=== PATIENT | male | born 1960 | race Caucasian/White ===

== ENCOUNTER 2022-11-29 01:06 | Day surgery (SDC) | payer BC, SELFPAY ==
[2022-11-18 08:38] VITALS: BMI 25.8
--- NOTE | 2022-11-28 13:20 | PM.HPGS ---
History of Present Illness History of Present Illness Consent: Risks, benefits, and alternatives have been discussed and questions answered. Patient agrees to proceed with procedure. Chief complaint: neoplasm screening Narrative: Orlando Salazar is a 61 year old male who was referred for colon cancer screening. Review of Systems Review of Systems: All systems reviewed & are unremarkable except as noted in HPI and below PMFSH Social History Social History Smoking status: Never smoker Alcohol intake: current Drinks per week: 9 Substance use type: does not use Living arrangements: with family Spiritual care concerns: No Meds Home Medications and Allergies Home Medications Medication Instructions Recorded Confirmed Type No Home Medications 11/18/22 11/29/22 History Allergies Allergy/AdvReac Type Severity Reaction Status Date / Time No Known Allergies Allergy Verified 11/29/22 06:18 Exam Const: General: alert Orientation/consciousness: patient oriented x3 Resp: Auscultation: clear to auscultation bilaterally Cardio: Rhythm: regular rhythm GI: GI Palp: Yes Soft to palpation and No Tenderness to palpation present (GI) Neuro: General: patient oriented x3 Assessment and Plan Assessment and plan (1) Colon cancer screening: Code(s): Z12.11 - Encounter for screening for malignant neoplasm of colon Status: Acute Assessment and Plan: Colonoscopy with possible biopsy or polypectomy or cautery or injection of substances.
--- NOTE | 2022-11-28 14:18 | P.PNAN_ITS ---
Anes - Initial Pre Proc Eval Procedure: Operation Date: 11/29/22 07:30 Proposed Procedures p Screening Colonoscopy - Rohan Goetz MD Date/Time: 11/28/22 14:18 Surgeon: Rohan Goetz MD Pre Op Diagnosis: neoplasm screening Patient Data Age: 61 Gender: M Height: 1.83 m Weight: 86.5 kg Allergies Allergy/AdvReac Type Severity Reaction Status Date / Time No Known Allergies Allergy Verified 11/29/22 06:18 Home Medications Medication Instructions Recorded Confirmed Type No Home Medications 11/18/22 11/29/22 History Patient hx anesthesia problems: none Family hx anesthesia problems: none Results Review: All pre-operative results and documents have been reviewed as part of the pre- operative evaluation. [facility] Social History Social History Smoking status: Never smoker Alcohol intake: current Drinks per week: 9 Substance use type: does not use Living arrangements: with family Spiritual care concerns: No Anes - Eval Final PreProcedure Day of Procedure 11/28/22 14:18 Patient weight: normal Heart: regular rate and rhythm Lungs: clear to auscultation Airway: Mallampati scale class II Neurological: alert and oriented Last oral intake: >/= 8 hours ASA classification: II Emergent: no Anesthetic plan: proceed Anesthesia type and monitoring: general GIVS and standard monitoring Results Review: All pre-operative results and documents have been reviewed as part of the pre- operative evaluation. Informed Consent: The patient's anesthetic plan and its attendant risks and benefits were discussed with the patient/family/POA. Questions were solicited and answers provided to the satisfaction of the patient/family/POA.
[2022-11-29 06:18] VITALS: BP 112/72; PULSE 78; RESP 18; TEMP 36.3; O2SAT 100
[2022-11-29] MEDS: LACTATED RINGERS 1,000 ML 150 ML IV CONT (06:26)
[2022-11-29 07:42] VITALS: BP 97/67; PULSE 71; RESP 16; O2SAT 95
[2022-11-29 07:52] VITALS: BP 105/74; PULSE 74; RESP 17; O2SAT 95
[2022-11-29 08:02] VITALS: BP 105/75; PULSE 72; RESP 19; O2SAT 100
== END 2022-11-29 08:09 | disposition home or self-care (01) ==
PROVIDERS: PCP Student in an Organized Health Care Education/Training Program; Visit Provider Internal Medicine Gastroenterology
PROC: 0DJD8ZZ Inspection of Lower Intestinal Tract, Via Natural or Artificial Opening Endoscopic (ICD-10-PCS; CPT 45378; principal; 2022-11-29 07:30)
DX: Z12.11 Encounter for screening for malignant neoplasm of colon (principal); K64.4 Residual hemorrhoidal skin tags; K64.8 Other hemorrhoids
CPT/HCPCS: 45378; J2704; J7120

== ENCOUNTER 2025-07-17 07:51 | Emergency (ER) | payer BC, SELFPAY ==
[2025-07-17 07:55] VITALS: BP 126/74; PULSE 76; RESP 20; TEMP 36.7; O2SAT 100
--- NOTE | 2025-07-17 08:10 | ED.GENADULT ---
HPI - General Adult General Chief complaint: Skin/Abscess/Foreign Body Stated complaint: skin around eye rash Time Seen by Provider: 07/17/25 07:53 History of Present Illness HPI narrative: 64-year-old male present to the emergency department for evaluation for worsening chronic rash. Patient was diagnosed with pemphigus foliaceus. patient has had follow-up with dermatology. Patient does have follow-up with a specialist infant childcare provider tomorrow. Patient is currently on topical triamcinolone, niacin, doxycycline. Patient began noticing worsening rash around his eyes over the last few days. Patient states that he does have extensive rash over his chest and back and does not feel this has been improving in response to the medications. Patient states he has been using some natural tears eyedrops. Related Data Home Medications ?Medication ?Instructions ?Recorded ?Confirmed ?Last Taken ?Type No Home Medications 11/18/22 11/29/22 Unknown History Allergies Allergy/AdvReac Type Severity Reaction Status Date / Time No Known Allergies Allergy Verified 11/29/22 06:18 Review of Systems Review of Systems: All systems reviewed & are unremarkable except as noted in HPI and below PMFSH Social History Social History Smoking status: Never smoker Alcohol intake: current Drinks per week: 9 Substance use type: does not use Living arrangements: with family Spiritual care concerns: No Exam Narrative: APPEARANCE: Well appearing, no pain, no distress, well-nourished. HEAD: normocephalic, atraumatic. EYES: PERRLA/EOMI, conjunctivae clear. NOSE: Normal no drainage EARS:TMS clear with good light reflex. THROAT: Pharynx clear, no exudate. NECK: Supple. No adenopathy, no masses. RESPIRATORY: Airway patent, respirations nonlabored. Clear to auscultation bilaterally, no rales, rhonchi, wheezing. CARDIOVASCULAR: Regular rate and rhythm without murmurs rubs or gallops. ABDOMINAL: Soft, nontender, nondistended, normal bowel sounds MUSCULOSKELETAL: Moves all extremities. Strength/ROM intact, No edema, No calf tenderness. NEURO: Alert. Cranial nerves II through XII intact. grossly intact SKIN: Eczema like rash under left eye and some puffiness under the right Course Vital Signs Vital signs: Vital Signs Temperature 98.0 F 07/17/25 07:55 Pulse Rate 76 07/17/25 07:55 Respiratory Rate 20 07/17/25 07:55 Blood Pressure 126/74 07/17/25 07:55 Pulse Oximetry 100 07/17/25 07:55 Oxygen Delivery Room Air 07/17/25 07:55 Temperature 98.0 F 07/17/25 07:55 Pulse Rate 76 07/17/25 07:55 Respiratory Rate 20 07/17/25 07:55 Blood Pressure 126/74 07/17/25 07:55 Pulse Oximetry 100 07/17/25 07:55 Oxygen Delivery Room Air 07/17/25 07:55 Medical Decision Making MDM Narrative Medical decision making narrative: 64-year-old male presenting to the emergency department for evaluation for rash developing on the eyes. Patient was advised not to use the triamcinolone cream on his face but was advised he is some topical cortisone as long as he was careful not to get it in his eyes. Patient was also advised to hold off on the natural tears to see if he is having a reaction to the eyedrops. Patient does have follow-up tomorrow with the infant childcare provider specialist. Patient family are comfortable the plan for discharge and close follow-up. Differential Diagnosis Differential Diagnosis: Cellulitis, periorbital cellulitis, except tremor tightest, eczema, pemphigus Vital Signs Vital Signs: Vital Signs Temperature 98.0 F 07/17/25 07:55 Pulse Rate 76 07/17/25 07:55 Respiratory Rate 20 07/17/25 07:55 Blood Pressure 126/74 07/17/25 07:55 Pulse Oximetry 100 07/17/25 07:55 Oxygen Delivery Room Air 07/17/25 07:55 Temperature 98.0 F 07/17/25 07:55 Pulse Rate 76 07/17/25 07:55 Respiratory Rate 20 07/17/25 07:55 Blood Pressure 126/74 07/17/25 07:55 Pulse Oximetry 100 07/17/25 07:55 Oxygen Delivery Room Air 07/17/25 07:55 Discharge Plan Discharge Clinical Impression: Rash of face Patient Disposition: Home Condition: Stable Instructions: Antibiotic Form Additional Instructions: Zyrtec to help with itching. Benadryl as needed for worsening itching. Topical hydrocortisone cream under the eye but be careful not to get any medication into the eye. Continue to have close follow-up with your specialist. If you have any worsening symptoms please call or return to emergency department. Patient Language: Citizen Of [place] Prescriptions: No Action No Home Medications Follow-up/Referrals: Deng,DO Anup [Primary Care Provider]
== END 2025-07-17 08:26 | disposition home or self-care (01) ==
PROVIDERS: Emergency Provider Emergency Medicine; PCP Student in an Organized Health Care Education/Training Program
DX: R21 Rash and other nonspecific skin eruption (principal); L10.2 Pemphigus foliaceous
CPT/HCPCS: 99281